=== PATIENT | male | born 1985 | race Two or more races ===

== ENCOUNTER 2016-12-14 18:47 | Emergency (ER) | payer MEDICAID ==
[~2016-12-14] VITALS: Ht 170.2 cm; Wt 70.0 kg
[~2016-12-14 18:47] MED LIST: CETI10CA PO; GUAI118L94 PO; MOTS PO
[2016-12-14 18:50] VITALS: Ht 170.2 cm; Wt 70.0 kg
--- NOTE | 2016-12-14 19:38 | ERA ---
ER Documentation Chief Complaint Date/Time DATE: 12/14/16 TIME: 19:32 Chief Complaint low back pain x 3 months, denies injury HPI This is a 31-year-old male presenting with a chief complaint of back pain 2-3 months. Patient denies mechanism of injury, history of cancer, recent illness, unexplained weight loss, saddle anesthesia, generalized neurological deficit, incontinence, urinary retention, thoracic pain, or pain at rest. Patient is worried that he might have a kidney stone. Patient has no other complaints and describes no other associated manifestations. Nursing notes have been reviewed and are consistent with the history given. ROS All systems reviewed and are negative except as per history of present illness. Medications Home Meds Active Scripts Ibuprofen* (Motrin*) 400 Mg Tab, 400 MG PO Q6H Y for PAIN AND OR ELEVATED TEMP, #30 TAB Prov:YARELIS GONZALES PA-C 12/14/16 Cetirizine Hcl* (Zyrtec*) 10 Mg Capsule, 10 MG PO DAILY, #30 TAB.CHEW Prov:GIGI KO NP 06/15/15 Guaifenesin-Codeine Phosphate* (Guaifenesin* with Codeine Liq) 120 Ml Liquid, 5 ML PO Q4H for COUGH, #60 ML Prov:GIGI KO NP 06/15/15 Reported Medications Ibuprofen (MOTRIN LIQUID (PED)) Unknown Strength Susp, PO Q6, #4 OZ 06/15/15 Allergies Allergies: Coded Allergies: No Known Allergy (Unverified , 12/14/16) PMhx/Soc Medical and Surgical Hx: pt denies Medical Hx, pt denies Surgical Hx History of Surgery: Yes (EYE SURGERY) Anesthesia Reaction: No Hx Neurological Disorder: No Hx Respiratory Disorders: No Hx Cardiac Disorders: No Hx Psychiatric Problems: No Hx Miscellaneous Medical Probl: No Hx Alcohol Use: No Hx Substance Use: No Hx Tobacco Use: No Smoking Status: Never smoker Physical Exam Vitals Vital Signs Date Time Temp Pulse Resp B/P Pulse Ox O2 Delivery O2 Flow Rate FiO2 12/14/16 18:50 98.1 73 20 129/75 20 Physical Exam Const: Well-appearing well-developed 31-year-old male Head: Atraumatic Eyes: Normal Conjunctiva. PERRLA, EOMI bilaterally. ENT: Normal External Ears, Nose and Mouth. Neck: Full range of motion..~ No meningismus. Resp: Clear to auscultation bilaterally Cardio: Regular rate and rhythm, no murmurs. Cap refill less than 2 seconds bilaterally Abd: Soft, non tender, non distended. Normal bowel sounds Skin: No petechiae or rashes Back: No midline or flank tenderness. Negative straight leg raise test. Ext: No cyanosis, or edema Neur: Awake and alert. Neurovascularly intact bilaterally. No abnormal ambulation with gross examination. Psych: Normal Mood and Affect Results 24 hrs Laboratory Tests Test 12/14/16 19:46 Bedside Urine pH (LAB) 7.0 Bedside Urine Protein (LAB) Negative Bedside Urine Glucose (UA) Negative Bedside Urine Ketones (LAB) Negative Bedside Urine Blood Negative Bedside Urine Nitrite (LAB) Negative Bedside Urine Leukocyte Esterase (L Negative Procedures/MDM Patient was evaluated and worked up for acute lower back pain. Patient refused pain medications in the ED. workup included urinalysis urine dip to help rule out kidney stone. Urine dip was unremarkable. Imaging modalities are not indicated at this time. Most likely diagnosis is paraspinal muscle strain versus sprain. Thus the treatment plan will include ibuprofen along with recommendation to avoid bedrest. At this time I do not suspect cauda equina syndrome, spinal cord compression, aortic aneurysm, aortic dissection, epidural abscess, kidney stones or pyelonephritis. I have spoke with the patient regarding their condition and future management. They have verbally responded that they understand their status and treatment plan. The patients vitals are stable, and their current condition is appropriate for discharge. The patient will be given discharge instructions with return precautions. Departure Diagnosis: Primary Impression: Back pain Qualified Code: M54.5 - Chronic bilateral low back pain without sciatica Condition: Stable Additional Instructions: Follow up with your PCP within the next 1-3 days for a more thorough evaluation and a possible referral to a specialist. Return the the emergency department immediately if symptoms worsen or change. If you have any questions regarding medications, ask your pharmacist or us before you leave. If any adverse reactions occur while taking your medications, discontinue the treatment and return to the emergency department immediately. Take your medications as directed, and complete the entire course of treatment. YARELIS GONZALES PA-C Dec 14, 2016 19:38
[2016-12-14 19:40] LABS: URINE BLOOD (Dip) POC Negative (NEGATIVE)
[2016-12-14] MEDS ORDERED: IBUP400T22 PO (20:27)
[2016-12-14 20:35] VITALS: BP 127/67; PULSE 67; RESP 20; TEMP 98.1
[2016-12-15 16:09] LABS: URINE BLOOD (Dip) POC Negative (NEGATIVE)
== END 2016-12-14 20:35 | disposition home or self-care (01) ==
LOC: FTE 18:47
DX: M54.5 Low back pain (principal)
CPT/HCPCS: 81003; 99283